=== PATIENT | female | born 1980 | race Caucasian/White ===

== ENCOUNTER 2019-02-20 12:23 | Inpatient (IN) ==
[~2019-02-20 12:23] MED LIST: *HR* Midazolam HCl 5 MG/5 ML VIAL IVP ONE
[2019-02-20] MEDS ORDERED: CeFAZolin Premix DUPLEX 2,000 MG/50 ML BAG IVPB ONE (12:39)
[2019-02-20] MEDS ORDERED: Famotidine 20 MG/2 ML VIAL IVP ONE (12:39)
[2019-02-20] MEDS ORDERED: Ringers Solution, Lactated 1,000 ML IVC ONE (12:39)
[2019-02-20] MEDS ORDERED: Metoclopramide 10 MG/2 ML VIAL IVP ONE (12:39)
[2019-02-20] MEDS ORDERED: *HR* Propofol 200 MG/20 ML VIAL IVP ONE (12:40)
[2019-02-20] MEDS ORDERED: Ketamine *HR* 500 MG/10 ML MDV ONE (12:41)
[2019-02-20] MEDS ORDERED: EPHEDrine 50 MG/ML VIAL ONE (12:42)
[2019-02-20] MEDS ORDERED: Oxytocin 20 units/ LR 1000 mL 20 UNIT/1,000 ML BAG IVC SCH (12:45)
[2019-02-20] MEDS ORDERED: Naloxone 0.4 MG/ML INJ IVP PRN ×2 (12:45→15:46)
[2019-02-20] MEDS ORDERED: Azithromycin 500 MG in 0.9 % Sodium Chloride 250 ML IVPB ONE (12:45)
[2019-02-20] MEDS ORDERED: Ringers Solution, Lactated 1,000 ML IVC SCH (12:45)
[2019-02-20] MEDS ORDERED: Ondansetron 4 MG/2 ML VIAL IVP PRN (12:45)
[2019-02-20] MEDS ORDERED: *HR* Oxytocin 10 UNIT/ML VIAL IM ONE ×2 (13:02→13:32)
[2019-02-20 13:04] LABS: Basophils # 0.1 K/mcL (0.0-0.2); Basophils % 0.2 %; Eosinophils # 0.1 K/mcL (0.0-0.6); Eosinophils % 0.3 %; Hematocrit 39.2 % (35.3-44.9); Hemoglobin 13.9 g/dL (11.5-15.4); Immature Granulocytes % 0.6 % (0-4); Lymphocytes # 3.1 K/mcL (0.6-4.6); Lymphocytes % 15.4 %; Mean Corpuscular HGB Conc 35.5 g/dL (31.6-35.5); Mean Corpuscular Hemoglobin 32.7 pg (28.0-33.3); Mean Corpuscular Volume 92.2 fL (83.0-100.0); Mean Platelet Volume 10.7 fL (9.4-12.4); Monocytes % 5.1 %; Neutrophils # 15.9 K/mcL (1.6-8.9); Platelet Count 303 K/mcL (140-400); Red Blood Count 4.25 M/mcL (3.82-4.97); Red Cell Distribution Width 12.1 % (11.5-14.5); Segmented Neutrophils % 78.4 %; White Blood Count 20.4 K/mcL (4.3-11.1)
[2019-02-20] MEDS ORDERED: *HR* Rocuronium Bromide 50 MG/5 ML VIAL ONE ×2 (13:09→14:01)
[2019-02-20] MEDS ORDERED: 0.9 % Sodium Chloride 1,000 ML ONE (13:13)
[2019-02-20] MEDS ORDERED: Ringers Solution, Lactated 2,000 ML ONE (13:27)
[2019-02-20] MEDS ORDERED: D10% in Water 500 ML ONE (13:28)
[2019-02-20] MEDS ORDERED: *HR* OxyCODONE Immed Rel 5 MG TABLET PO PRN (13:30)
[2019-02-20] MEDS ORDERED: *HR* HYDROmorphone (PF) 1 MG/ML SYRINGE IVP PRN (13:30)
[2019-02-20] MEDS ORDERED: *HR* Midazolam HCl 2 MG/2 ML VIAL ONE ×2 (13:31→13:41)
[2019-02-20] MEDS ORDERED: Ringers Solution, Lactated 1,000 ML ONE (13:32)
[2019-02-20] MEDS ORDERED: *HR* FentaNYL (PF) 100 MCG/2 ML VIAL ONE (14:06)
[2019-02-20 14:12] LABS: ABG Base Excess -6 mEq/L (-2 to 3); ABG Chloride 103 mEq/L (98-107); ABG Glucose 134 mg/dL (60-95); ABG HCO3 19 mEq/L (21-27); ABG Ionized Calcium 1.26 mmol/L (1.15-1.35); ABG Oxygen Saturation 100 % (95-98); ABG PCO2 33 mmHg (35-45); ABG PH 7.36 pH Units (7.32-7.45); ABG PO2 604 mmHg (85-104); ABG TCO2 20 mEq/L (20-26)
[2019-02-20 15:00] LABS: ABG Base Excess -2 mEq/L (-2 to 3); ABG Chloride 103 mEq/L (98-107); ABG Glucose 170 mg/dL (60-95); ABG HCO3 22 mEq/L (21-27); ABG Ionized Calcium 0.81 mmol/L (1.15-1.35); ABG Oxygen Saturation 100 % (95-98); ABG PCO2 36 mmHg (35-45); ABG PO2 232 mmHg (85-104); ABG TCO2 24 mEq/L (20-26)
[2019-02-20] MEDS ORDERED: Acetaminophen 325 MG TABLET PO PRN (15:46)
[2019-02-20] MEDS ORDERED: *HR* HYDROcodone/Acet 5/325 mg TABLET PO PRN (15:46)
[2019-02-20] MEDS ORDERED: Calcium Gluconate 1gm/50mL 1 GM/50 ML BAG IVPB SCH (16:00)
[2019-02-20] MEDS ORDERED: *HR* FentaNYL (PF) 100 MCG/2 ML VIAL IVP ONE ×2 (16:26→16:32)
[2019-02-20] MEDS: *HR* Midazolam HCl 5 MG/5 ML VIAL IVP ONE ×2 (16:46→18:54)
[2019-02-20 16:58] LABS: BUN/Creatinine Ratio 17 (6-26); Blood Urea Nitrogen 9 mg/dL (6-20); Calcium 9.6 mg/dL (8.6-10.3); Carbon Dioxide 24 mEq/L (23-29); Chloride 106 mEq/L (98-107); Glucose 153 mg/dL (70-105); Osmolality,Calculated 292 (280-300); Potassium 3.4 mEq/L (3.5-5.1); Sodium 140 mEq/L (136-145); eGFR For African Americans > 60 (> 60); eGFR For Non-African Americans > 60 (> 60)
[2019-02-20] MEDS: FentaNYL (PF) 1,000 MCG in 0.9 % Sodium Chloride 80 ML IVC SCH ×2 (17:00→23:00)
[2019-02-20] MEDS ORDERED: Azithromycin 500 MG in 0.9 % Sodium Chloride 250 ML IVPB SCH (17:00)
[2019-02-20] MEDS ORDERED: Artificial Tears SOLN 15 ML BOTTLE BOTH EYES PRN (17:06)
[2019-02-20] MEDS: Famotidine 20 MG/2 ML VIAL IVP SCH (18:37)
[2019-02-20] MEDS ORDERED: *HR* Midazolam HCl 2 MG/2 ML VIAL IVP ONE (18:43)
[2019-02-20 19:21] LABS: Basophils % 0.2 %; Hematocrit 37.6 % (35.3-44.9); Hemoglobin 13.3 g/dL (11.5-15.4); Immature Granulocytes % 0.5 % (0-4); Lymphocytes # 1.5 K/mcL (0.6-4.6); Lymphocytes % 11.3 %; Mean Corpuscular HGB Conc 35.4 g/dL (31.6-35.5); Mean Corpuscular Hemoglobin 31.1 pg (28.0-33.3); Mean Corpuscular Volume 87.9 fL (83.0-100.0); Mean Platelet Volume 10.1 fL (9.4-12.4); Monocytes # 1.1 K/mcL (0.0-1.3); Monocytes % 8.7 %; Neutrophils # 10.4 K/mcL (1.6-8.9); Platelet Count 106 K/mcL (140-400); Red Blood Count 4.28 M/mcL (3.82-4.97); Red Cell Distribution Width 14.3 % (11.5-14.5); Segmented Neutrophils % 79.3 %; White Blood Count 13.1 K/mcL (4.3-11.1)
[2019-02-20 19:25] LABS: Prothrombin Time 10.9 Seconds (9.4-12.1)
[2019-02-20 19:28] LABS: Activated Partial Thrombo Time 26.4 Seconds (26.0-36.0)
[2019-02-20 19:40] LABS: Magnesium 1.5 mg/dL (1.6-2.6)
[2019-02-20 19:41] LABS: Alanine Aminotransferase 13 Units/L (7-52); Albumin 3.3 g/dL (3.5-5.7); Albumin/Globulin Ratio 1.8 (1.1-2.2); Alkaline Phosphatase 47 Units/L (34-104); Aspartate Amino Transferase 17 Units/L (13-39); BUN/Creatinine Ratio 16 (6-26); Bilirubin,Total 1.2 mg/dL (0.3-1.0); Blood Urea Nitrogen 9 mg/dL (6-20); Calcium 9.6 mg/dL (8.6-10.3); Carbon Dioxide 25 mEq/L (23-29); Chloride 106 mEq/L (98-107); Globulin 1.8 g/dL (2.4-3.5); Glucose 131 mg/dL (70-105); Osmolality,Calculated 288 (280-300); Potassium 3.8 mEq/L (3.5-5.1); Sodium 139 mEq/L (136-145); Total Protein 5.1 g/dL (6.4-8.9); eGFR For African Americans > 60 (> 60); eGFR For Non-African Americans > 60 (> 60)
[2019-02-20] MEDS: Chlorhexidine Rinse 15 ML MOUTHWASH MM SCH (19:54)
[2019-02-20] MEDS: Artificial Tears SOLN 15 ML BOTTLE BOTH EYES SCH (19:54)
[2019-02-20] MEDS: ceFAZolin 1,000 MG in Water for inj. (sterile) 10 ML IVP SCH (21:32)
[2019-02-20 21:57] LABS: Hematocrit 31.4 % (35.3-44.9)
[2019-02-20 22:02] LABS: Activated Partial Thrombo Time 25.6 Seconds (26.0-36.0)
[2019-02-20 22:09] LABS: Alanine Aminotransferase 10 Units/L (7-52); Albumin 2.8 g/dL (3.5-5.7); Albumin/Globulin Ratio 1.9 (1.1-2.2); Alkaline Phosphatase 39 Units/L (34-104); Aspartate Amino Transferase 15 Units/L (13-39); BUN/Creatinine Ratio 19 (6-26); Bilirubin,Direct 0.2 mg/dL (0.0-0.2); Bilirubin,Indirect 0.6 mg/dL (0.0-1.0); Bilirubin,Total 0.8 mg/dL (0.3-1.0); Blood Urea Nitrogen 8 mg/dL (6-20); Calcium 8.5 mg/dL (8.6-10.3); Carbon Dioxide 23 mEq/L (23-29); Chloride 107 mEq/L (98-107); Globulin 1.5 g/dL (2.4-3.5); Glucose 112 mg/dL (70-105); Magnesium 1.4 mg/dL (1.6-2.6); Osmolality,Calculated 281 (280-300); Potassium 4.1 mEq/L (3.5-5.1); Sodium 136 mEq/L (136-145); Total Protein 4.3 g/dL (6.4-8.9); eGFR For African Americans > 60 (> 60); eGFR For Non-African Americans > 60 (> 60)
[2019-02-20 22:13] LABS: Hemoglobin 11.5 g/dL (11.5-15.4)
[2019-02-21] MEDS: Artificial Tears SOLN 15 ML BOTTLE BOTH EYES SCH ×3 (00:32→12:55)
[2019-02-21 01:40] LABS: ABG Base Excess 3 mEq/L (-2 to 3); ABG HCO3 28 mEq/L (21-27); ABG Oxygen Saturation 100 % (95-98); ABG PCO2 42 mmHg (35-45); ABG PH 7.43 pH Units (7.32-7.45); ABG PO2 187 mmHg (85-104); ABG TCO2 29 mEq/L (20-26); Blood Gas Modality PRVC; Blood Gas VT 450 cc
[2019-02-21 01:45] LABS: Hemoglobin 10.7 g/dL (11.5-15.4)
[2019-02-21 01:50] LABS: ABG Ionized Calcium 1.06 mmol/L (1.15-1.35)
[2019-02-21 02:06] LABS: BUN/Creatinine Ratio 17 (6-26); Blood Urea Nitrogen 8 mg/dL (6-20); Calcium 8.4 mg/dL (8.6-10.3); Carbon Dioxide 27 mEq/L (23-29); Chloride 106 mEq/L (98-107); Glucose 103 mg/dL (70-105); Osmolality,Calculated 283 (280-300); Potassium 3.7 mEq/L (3.5-5.1); Sodium 137 mEq/L (136-145); eGFR For African Americans > 60 (> 60); eGFR For Non-African Americans > 60 (> 60)
[2019-02-21 02:08] LABS: Magnesium 1.5 mg/dL (1.6-2.6); Phosphorous 3.5 mg/dL (2.7-4.5)
[2019-02-21 02:10] LABS: Activated Partial Thrombo Time 21.7 Seconds (26.0-36.0)
[2019-02-21] MEDS: FentaNYL (PF) 1,000 MCG in 0.9 % Sodium Chloride 80 ML IVC SCH (03:29)
[2019-02-21 05:00] LABS: ABG Base Excess 4 mEq/L (-2 to 3); ABG HCO3 27 mEq/L (21-27); ABG Oxygen Saturation 100 % (95-98); ABG PCO2 31 mmHg (35-45); ABG PH 7.54 pH Units (7.32-7.45); ABG PO2 211 mmHg (85-104); ABG TCO2 28 mEq/L (20-26); Blood Gas Modality PRVC; Blood Gas VT 450 cc
[2019-02-21 05:12] LABS: Hematocrit 29.6 % (35.3-44.9); Hemoglobin 10.7 g/dL (11.5-15.4)
[2019-02-21 05:13] LABS: ABG Ionized Calcium 1.18 mmol/L (1.15-1.35)
[2019-02-21] MEDS: ceFAZolin 1,000 MG in Water for inj. (sterile) 10 ML IVP SCH ×2 (05:20→10:57)
[2019-02-21 05:22] LABS: INR 0.9; Prothrombin Time 10.7 Seconds (9.4-12.1)
[2019-02-21 05:33] LABS: Magnesium 1.5 mg/dL (1.6-2.6); Phosphorous 3.3 mg/dL (2.7-4.5)
[2019-02-21 05:34] LABS: Alanine Aminotransferase 11 Units/L (7-52); Albumin 2.7 g/dL (3.5-5.7); Albumin/Globulin Ratio 1.6 (1.1-2.2); Alkaline Phosphatase 42 Units/L (34-104); Aspartate Amino Transferase 16 Units/L (13-39); BUN/Creatinine Ratio 17 (6-26); Bilirubin,Direct 0.1 mg/dL (0.0-0.2); Bilirubin,Indirect 0.4 mg/dL (0.0-1.0); Bilirubin,Total 0.5 mg/dL (0.3-1.0); Blood Urea Nitrogen 8 mg/dL (6-20); Calcium 8.4 mg/dL (8.6-10.3); Carbon Dioxide 25 mEq/L (23-29); Chloride 105 mEq/L (98-107); Globulin 1.7 g/dL (2.4-3.5); Glucose 82 mg/dL (70-105); Osmolality,Calculated 281 (280-300); Potassium 3.8 mEq/L (3.5-5.1); Sodium 137 mEq/L (136-145); Total Protein 4.4 g/dL (6.4-8.9); eGFR For African Americans > 60 (> 60); eGFR For Non-African Americans > 60 (> 60)
[2019-02-21] MEDS: Famotidine 20 MG/2 ML VIAL IVP SCH (06:21)
[2019-02-21] MEDS ORDERED: Furosemide 40 MG/4 ML VIAL IVP ONE (10:19)
[2019-02-21] MEDS ORDERED: *HR* OxyCODONE/APAP 5/325 TABLET PO PRN ×2 (10:20→16:58)
[2019-02-21 10:24] LABS: INR 0.9; Prothrombin Time 10.1 Seconds (9.4-12.1)
[2019-02-21 10:42] LABS: Magnesium 1.6 mg/dL (1.6-2.6); Phosphorous 3.8 mg/dL (2.7-4.5)
[2019-02-21] MEDS: Chlorhexidine Rinse 15 ML MOUTHWASH MM SCH (10:58)
[2019-02-21] MEDS ORDERED: Simethicone 80 MG TAB.CHEW PO PRN ×2 (12:03→17:02)
[2019-02-21] MEDS: Dexmedetomidine HCl 400 MCG/100 ML MLS IVC SCH (12:56)
[2019-02-21] MEDS ORDERED: *HR* OxyCODONE/APAP 5/325 TABLET PO SCH (15:15)
[2019-02-21] MEDS ORDERED: Famotidine 20 MG/2 ML VIAL IVP SCH (18:00)
[2019-02-21] MEDS ORDERED: Ondansetron 4 MG/2 ML VIAL IVP PRN (19:23)
[2019-02-21] MEDS ORDERED: Naloxone 0.4 MG/ML INJ IVP PRN (19:23)
[2019-02-21] MEDS ORDERED: Ketorolac 30 MG/ML VIAL IM PRN (19:23)
[2019-02-21] MEDS ORDERED: ceFAZolin 1,000 MG in Water for inj. (sterile) 10 ML IVP SCH (20:00)
[2019-02-21] MEDS: Ketorolac 30 MG/ML VIAL IVP SCH (20:23)
[2019-02-22] MEDS: Ketorolac 30 MG/ML VIAL IVP SCH ×2 (01:43→06:13)
[2019-02-22 04:33] LABS: Basophils % 0.2 %; Eosinophils # 0.1 K/mcL (0.0-0.6); Eosinophils % 1.1 %; Hematocrit 33.7 % (35.3-44.9); Hemoglobin 11.4 g/dL (11.5-15.4); Immature Granulocytes % 0.5 % (0-4); Lymphocytes # 1.2 K/mcL (0.6-4.6); Lymphocytes % 10.4 %; Mean Corpuscular HGB Conc 33.8 g/dL (31.6-35.5); Mean Corpuscular Hemoglobin 31.8 pg (28.0-33.3); Mean Corpuscular Volume 94.1 fL (83.0-100.0); Monocytes # 0.8 K/mcL (0.0-1.3); Monocytes % 7.4 %; Neutrophils # 8.9 K/mcL (1.6-8.9); Platelet Count 116 K/mcL (140-400); Red Blood Count 3.58 M/mcL (3.82-4.97); Red Cell Distribution Width 14.8 % (11.5-14.5); Segmented Neutrophils % 80.4 %; White Blood Count 11.1 K/mcL (4.3-11.1)
[2019-02-22] MEDS ORDERED: ceFAZolin 1,000 MG in Water for inj. (sterile) 10 ML IVP SCH (05:00)
[2019-02-22] MEDS: Simethicone 80 MG TAB.CHEW PO PRN ×3 (10:07→18:57)
[2019-02-22] MEDS: cephALEXin 500 MG CAPSULE PO SCH ×3 (10:07→20:17)
[2019-02-22] MEDS: Azithromycin 250 MG TABLET PO SCH (10:07)
[2019-02-22] MEDS: *HR* HYDROcodone/Acet 5/325 mg TABLET PO PRN ×2 (12:47→18:58)
[2019-02-22 14:00] LABS: Alanine Aminotransferase 9 Units/L (7-52); Aspartate Amino Transferase 20 Units/L (13-39); BUN/Creatinine Ratio 14 (6-26); Blood Urea Nitrogen 8 mg/dL (6-20); eGFR For African Americans > 60 (> 60); eGFR For Non-African Americans > 60 (> 60)
[2019-02-22] MEDS: Ibuprofen 600 MG TABLET PO PRN (16:38)
[2019-02-22] MEDS ORDERED: Azithromycin 500 MG in 0.9 % Sodium Chloride 250 ML IVPB SCH (17:00)
[2019-02-23] MEDS: *HR* HYDROcodone/Acet 5/325 mg TABLET PO PRN ×2 (00:37→07:52)
[2019-02-23 02:58] LABS: Basophils % 0.3 %; Eosinophils # 0.2 K/mcL (0.0-0.6); Eosinophils % 2.6 %; Hematocrit 29.3 % (35.3-44.9); Hemoglobin 10.4 g/dL (11.5-15.4); Immature Granulocytes % 0.5 % (0-4); Lymphocytes # 1.6 K/mcL (0.6-4.6); Lymphocytes % 16.6 %; Mean Corpuscular HGB Conc 35.5 g/dL (31.6-35.5); Mean Corpuscular Volume 90.2 fL (83.0-100.0); Mean Platelet Volume 9.8 fL (9.4-12.4); Monocytes # 0.8 K/mcL (0.0-1.3); Neutrophils # 6.8 K/mcL (1.6-8.9); Platelet Count 137 K/mcL (140-400); Red Blood Count 3.25 M/mcL (3.82-4.97); Red Cell Distribution Width 14.3 % (11.5-14.5); White Blood Count 9.4 K/mcL (4.3-11.1)
[2019-02-23 03:07] LABS: Alanine Aminotransferase 8 Units/L (7-52); Aspartate Amino Transferase 17 Units/L (13-39); BUN/Creatinine Ratio 13 (6-26); Blood Urea Nitrogen 7 mg/dL (6-20); eGFR For African Americans > 60 (> 60); eGFR For Non-African Americans > 60 (> 60)
[2019-02-23] MEDS: cephALEXin 500 MG CAPSULE PO SCH (09:32)
[2019-02-23] MEDS: Azithromycin 250 MG TABLET PO SCH (09:32)
[2019-02-23] MEDS: Ibuprofen 600 MG TABLET PO PRN (10:56)
[2019-02-23 11:40] VITALS: BP 102/61
[2019-02-24 10:30] LABS: ABG Base Excess -3 mEq/L (-2 to 3); ABG Chloride 104 mEq/L (98-107); ABG Glucose 157 mg/dL (60-95); ABG HCO3 22 mEq/L (21-27); ABG Ionized Calcium 1.13 mmol/L (1.15-1.35); ABG Oxygen Saturation 100 % (95-98); ABG PCO2 37 mmHg (35-45); ABG PH 7.38 pH Units (7.32-7.45); ABG PO2 460 mmHg (85-104); ABG TCO2 23 mEq/L (20-26)
== END 2019-02-23 12:30 | disposition home or self-care (01) | DRG 786 ==
LOC: 1NENULAB → OBSVTOIN 12:23 → ICNU 16:06 → 1NENUPED 02-21 18:11
PROVIDERS: ADMIT Obstetrics & Gynecology; ATTEND Obstetrics & Gynecology